=== PATIENT | male | born 1945 | race Native Hawaiian/Other Pacific Islander ===

== ENCOUNTER 2019-05-09 09:30 | Outpatient (CLI) | payer OTHER | END 2019-05-09 19:27 | disposition home or self-care (01) | LOC: US 09:30 | DX: R09.89 Other specified symptoms and signs involving the circulatory and respiratory systems (principal) ==

== ENCOUNTER 2022-07-31 10:31 | Outpatient (CLI) | payer OTHER ==
[2022-07-31 10:56] LABS: POTASSIUM 3.9 mmol/L (3.6-5.2)
[2022-07-31 10:58] LABS: PLATELET COUNT 127 K/uL (142-355)
== END 2022-07-31 18:57 | disposition home or self-care (01) ==
LOC: LABW 10:31
PROVIDERS: ATTEND Internal Medicine Cardiovascular Disease
DX: Z79.899 Other long term (current) drug therapy (principal)
CPT/HCPCS: 36415; 80053; 80061; 85027